=== PATIENT | male | born 1990 | race Caucasian/White ===

== ENCOUNTER 2023-01-14 08:15 | Emergency (ER) | payer OTHER, SELFPAY ==
[2023-01-14 08:32] VITALS: BP 141/93; PULSE 72; RESP 16; TEMP 36.2; O2SAT 100
--- NOTE | 2023-01-14 08:44 | ED.MALEGU ---
HPI - Male Genitourinary General Chief complaint: Urogenital-Male Stated complaint: UTI Time Seen by Provider: 01/14/23 08:45 Source: patient, RN notes reviewed and old records reviewed Mode of arrival: ambulatory Limitations: no limitations History of Present Illness HPI Narrative: 32-year-old male presents to [facility] with complaints of 2-3 days of some testicular discomfort when sitting and yesterday he experienced pain in penis when he urinated. Patient denies any concern for STD exposure report that he is '32 year old virgin'.Patient denies any pain to testicles or to penis at this time. He reports some flank pain bilaterally when sitting. Patient reports family history of kidney stones denies any previous kidney stone himself. Patient has no redness or swelling of penis or testicles. patient reports that he has not had any fevers or taken any OTC medication for discomfort. MD Complaint: dysuria (pain yesterday when urinated) and other (flank pain when sitting) Onset (ago): day(s) (2-3 days) Severity: moderate Quality: aching Related Data Sexually active: No Allergies Allergy/AdvReac Type Severity Reaction Status Date / Time No Known Allergies Allergy Verified 01/14/23 08:54 Review of Systems Review of Systems: CONSTITUTIONAL: Denies fever, chills, or sweats. CARDIOVASCULAR: Denies chest pain, palpitations, or edema. RESPIRATORY: Denies cough or dyspnea. GASTROINTESTINAL: Denies abdominal pain, nausea, vomiting, or diarrhea. GENITOURINARY: Reports dysuria yesterday when urinated denies any frequency, urgency with urination. Reports some testicle pain when sitting 2-3 days denies pain at present. reports bilateral flank pain when sitting denies any hematuria. SKIN: Denies rash or itching. MUSCULOSKELETAL: Denies back pain or myalgia. CVA tenderness when sitting NEUROLOGIC: Denies headache All systems reviewed & are unremarkable except as noted in HPI and below PMFSH Past Medical History Medical History (Updated 01/15/23 @ 08:38 by Dara Cm NP) Developmental delay, mild Social History Social History (Updated 01/14/23 @ 09:01 by Dara Cm NP) Smoking status: Never smoker Living arrangements: with family Gender identity (if verbalized by the patient): Male Comments At time of signature, agree with nursing past medical, surgical, social and family history. There is no relevant family history pertinent to the presenting complaint Exam Narrative: GENERAL: Well-appearing, well-nourished, and in no acute distress. HEAD: Normocephalic, atraumatic. NECK: Supple. no lymphadenopathy CHEST: Clear to auscultation. No respiratory distress.SAO2 100% on room air HEART: Regular rate and rhythm. No murmur heard. Normal peripheral pulses. ABDOMEN: Soft, nontender on palpation, nondistended, normal active bowel sounds. some CVA tenderness bilateral only when sitting denies none on standing.no testicle pain or penis pain stated at this time, no penis redness or any testicle swelling or redness. EXTREMITIES: Normal range of motion. No edema. SKIN: Warm, dry, no rash. NEURO: No focal deficits. Alert and oriented x3. Course Course Emergency Course: Patient is aware of diagnosis, understands and agrees to treatment plan.? Anticipatory guidance given.? Patient agrees to follow-up as directed and is aware of reasons to seek care at the emergency department. Portions of this record may have been created with voice recognition software Level of Care: [facility] Visit Vital Signs Vital signs: Vital Signs Temperature 36.2 C L 01/14/23 08:32 Pulse Rate 72 01/14/23 08:32 Respiratory Rate 16 01/14/23 08:32 Blood Pressure 141/93 H 01/14/23 08:32 Pulse Oximetry 100 01/14/23 08:32 Oxygen Delivery Room Air 01/14/23 08:32 Temperature 36.2 C L 01/14/23 08:32 Pulse Rate 72 01/14/23 08:32 Respiratory Rate 16 01/14/23 08:32 Blood Pressure 141/93 H 01/14/23 08:32 Pulse Oximetr
== END 2023-01-14 09:30 | disposition home or self-care (01) ==
PROVIDERS: Emergency Provider Registered Nurse
DX: R30.0 Dysuria (principal); R10.9 Unspecified abdominal pain; R62.50 Unspecified lack of expected normal physiological development in childhood
CPT/HCPCS: 81003; 99213; G0463